=== PATIENT | male | born 1990 | race American Indian/Alaskan Native ===

== ENCOUNTER 2020-05-02 20:35 | Emergency (ER) | payer SELFPAY ==
--- NOTE | 2020-05-02 22:31 | XRay Report ---
CLINICAL DATA: Pain TECHNICAL DATA: Three views were obtained, AP, lateral and oblique. FINDINGS: There is no acute fracture or dislocation. The visualized joint spaces are normal. IMPRESSION: No acute radiographic abnormality. Signer Name: Ignacio Coles MD Signed: 05/02/2020 10:27 PM Workstation Name: [id number]
--- NOTE | 2020-05-02 23:21 | Emergency Department Report ---
Upper Extremity - HPI Chief Complaint: Extremity Injury, Upper Stated Complaint: LEFT MIDDLE FINGER PAIN Upper Extremity: Left Middle Finger Occurred When: Today Mechanism: Hyperflexion Severity: moderate Symptoms: Yes Pain with Movement, Yes Deformity, Yes Limited Range of Movement, No Numbness, No Weakness, No Swelling, No Bruising/Ecchymosis, No Laceration or Abrasion ED Review of Systems ROS: Stated complaint: LEFT MIDDLE FINGER PAIN Other details as noted in HPI Comment: All other systems reviewed and negative Constitutional: denies: chills, fever Respiratory: denies: cough, shortness of breath Cardiovascular: denies: chest pain, palpitations Upper Extremity Exam - Exam General: Vital signs noted. No distress. Alert and acting appropriately. Head and Torso: No HEENT Abnormality, No Neck Tenderness, No Chest/Lungs Abnormality, No Abdominal Tenderness, No Back Tenderness Shoulder Exam: No Shoulder Tenderness, No Clavicle Tenderness, No Normal Range of Motion in Shoulder, No Shoulder Deformity Arm Exam: No Arm/Humerus Tenderness, No Arm Deformity Elbow: No Elbow Tenderness, No Normal Range of Motion in Elbow, No Elbow Deformity Hand: Yes Digit(s) Deformity ED Course Vital Signs 05/02/20 21:00 Temperature 98.9 F Pulse Rate 87 Respiratory 18 Rate Blood Pressure 169/110 O2 Sat by Pulse 99 Oximetry - Orthopedic Joint Reduction Joint #1 Side: left Joint Reduction Location: finger Post-Reduction Neuro Exam: intact Post Reduction X-Ray Results: reduced Splint Applied: Yes Patient Tolerated Procedure: well, no complications Critical care attestation.: If time is entered above; I have spent that time in minutes in the direct care of this critically ill patient, excluding procedure time. ED Disposition Clinical Impression: Dislocation of left middle finger Disposition: DC-01 TO HOME OR SELFCARE Is pt being admited?: No Condition: Stable Instructions: Finger Dislocation (ED) Referrals: [facility] [Provider Group] - 3-5 Days
[2020-05-03 00:55] VITALS: BP 137/92
== END 2020-05-02 23:30 | disposition home or self-care (01) ==
LOC: ED 20:35
DX: S63.253A Unspecified dislocation of left middle finger, initial encounter (principal); X58.XXXA Exposure to other specified factors, initial encounter; Y93.89 Activity, other specified; Y92.89 Other specified places as the place of occurrence of the external cause; Y99.8 Other external cause status

== ENCOUNTER 2020-06-20 09:15 | Emergency (ER) | payer SELFPAY ==
[2020-06-20 09:22] VITALS: BP 140/99
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
== END 2020-06-20 11:18 | disposition home or self-care (01) ==
LOC: ED 09:15
DX: S62.613A Displaced fracture of proximal phalanx of left middle finger, initial encounter for closed fracture (principal); X58.XXXA Exposure to other specified factors, initial encounter; Y93.89 Activity, other specified; Y92.89 Other specified places as the place of occurrence of the external cause; Y99.8 Other external cause status
CPT/HCPCS: 99283

== ENCOUNTER 2021-08-23 15:29 | Emergency (ER) | payer SELFPAY ==
[2021-08-23 15:38] VITALS: BP 143/91
== END 2021-08-24 06:19 | disposition left against medical advice (07) ==
LOC: ED 15:29
DX: R50.9 Fever, unspecified (principal); M79.18 Myalgia, other site; E86.0 Dehydration; Z53.21 Procedure and treatment not carried out due to patient leaving prior to being seen by health care provider

== ENCOUNTER 2021-10-22 17:38 | Emergency (ER) | payer SELFPAY ==
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
[2021-10-22 23:36] VITALS: BP 142/100
== END 2021-10-22 23:35 | disposition home or self-care (01) ==
LOC: ED 17:38
DX: S05.02XA Injury of conjunctiva and corneal abrasion without foreign body, left eye, initial encounter (principal); H10.022 Other mucopurulent conjunctivitis, left eye; Z79.899 Other long term (current) drug therapy; X58.XXXA Exposure to other specified factors, initial encounter; Y93.89 Activity, other specified; Y92.89 Other specified places as the place of occurrence of the external cause; Y99.8 Other external cause status
CPT/HCPCS: 99282

== ENCOUNTER 2021-10-25 15:08 | Emergency (ER) | payer SELFPAY ==
[2021-10-25 17:21] VITALS: BP 132/92
--- NOTE | 2021-10-25 21:03 | Emergency Department Report ---
Eye Injury/Foreign Body - HPI Duration: 4 Days Eye Location: Left Severity: Severe Tetanus Status: Up to Date Eye Symptoms: Eye Pain: Yes, Blurred Vision: Yes, Eye Redness: Yes, Grinding/Hammering Metal: No, Used Eye Protection: No, Contact Lens Use: Yes, Recalls Injury: No, Photophobia: No ED Review of Systems ROS: Stated complaint: POSS EYE INFECTION Other details as noted in HPI Comment: All other systems reviewed and negative ED Past Medical Hx - Social History Smoking Status: Light Tobacco Smoker Substance Use Type: Marijuana - Medications Home Medications: Home Medications Medication Instructions Recorded Confirmed Last Taken Type Naproxen [Naprosyn TAB] 500 mg PO BID #14 tablet 06/20/20 Unknown Rx Ketorolac Tromethamin 0.4%(Nf) 1 drop OP QID #1 bottle 10/22/21 Unknown Rx [Acular Ls 0.4% Ophth Darcy] Tobramycin [Tobrex] 1 drop OP Q4H #1 bottle 10/22/21 Unknown Rx Eye Injury Exam - Exam General: Vital signs noted. No distress. Alert and acting appropriately. - Visual Acuity Left Eye Exam: Left Injection (Cloudy left cornea with injected conjunctiva), Neither Chemosis, Neither Abnormal Pupil, Neither EOMI, Neither Eye Foreign Body, Neither Lid Foreign Body, Neither Mucous Discharge, Neither Purulent Discharge, Neither Fluorescein Uptake, Neither Fluorescein Uptake (slit lamp), Neither Cell/Flare (slit lamp), Neither Corneal Edema, Neither Photophobia Right Vision Acuity Degree: 20/50 Eye Exam: Neither Injection, Neither Chemosis, Neither Abnormal Pupil, Neither EOMI, Neither Eye Foreign Body, Neither Lid Foreign Body, Neither Mucous Discharge, Neither Purulent Discharge, Neither Fluorescein Uptake, Neither Fluorescein Uptake (slit lamp), Neither Cell/Flare (slit lamp), Neither Corneal Edema, Neither Photophobia ED Course Vital Signs 10/25/21 10/25/21 15:27 17:15 Temperature 98.7 F 98.7 F Pulse Rate 92 H 72 Respiratory 18 14 Rate Blood Pressure 132/92 Blood Pressure 122/89 [Right] O2 Sat by Pulse 98 100 Oximetry Critical care attestation.: If time is entered above; I have spent that time in minutes in the direct care of this critically ill patient, excluding procedure time. ED Disposition Clinical Impression: Corneal abrasion, Corneal ulcer of left eye Disposition: HOME / SELF CARE / HOMELESS Is pt being admited?: No Does the pt Need Aspirin: No Condition: Stable Instructions: Corneal Ulcer, How to Use Eye Drops and Eye Ointments Referrals: [facility] [Provider Group] - 24 Hours PRIMARY [facility]ARE, [Primary Care Provider] - 3-5 Days
== END 2021-10-25 22:45 | disposition home or self-care (01) ==
LOC: ED 15:08
DX: S05.02XA Injury of conjunctiva and corneal abrasion without foreign body, left eye, initial encounter (principal); H16.002 Unspecified corneal ulcer, left eye; F17.200 Nicotine dependence, unspecified, uncomplicated; F12.90 Cannabis use, unspecified, uncomplicated; X58.XXXA Exposure to other specified factors, initial encounter; Y93.89 Activity, other specified; Y92.89 Other specified places as the place of occurrence of the external cause; Y99.8 Other external cause status
CPT/HCPCS: 99282